=== PATIENT | female | born 2000 | race Two or more races ===

== ENCOUNTER 2025-07-04 13:24 | Emergency (ER) | payer OTHER ==
[~2025-07-04] VITALS: Ht 160 cm; Wt 46.7 kg
[2025-07-04 13:54] VITALS: BP 96/64; O2SAT 97
[2025-07-04] MEDS ORDERED: ADDERALL 10 MG10 MG PO (13:54)
[2025-07-04] MEDS ORDERED: CETIRIZINE HCL 5 MG/5 ML ML PO ONE (15:15)
[2025-07-04] MEDS ORDERED: GUAIFENESIN/DEXTROMETHORPHAN 100MG/10ML BLIST.PACK PO ONE ×2 (15:15→15:30)
[2025-07-04] MEDS ORDERED: ACETAMINOPHEN 500 MG GEL..CAP PO ONE ×2 (15:15→15:29)
[2025-07-04] MEDS ORDERED: CETIRIZINE HCL 10 MG TABLET PO ONE (15:29)
[2025-07-04 15:48] LABS: BASO % 0.2 % (0.1-1.2); EOS # 0.02 (0.04-0.54); EOS % 0.4 % (0.7-7.0); LYMPH # 0.65 (1.18-3.74); LYMPH % 13.2 % (19.3-53.1); MEAN PLATELET VOLUME 9.80 fl (9.4-12.4); MONO # 0.93 (0.24-0.82); NEUT # 3.29 (1.56-6.13); NEUT % 67.1 % (34.0-71.1); RED CELL DISTRIBUTION WIDTH 11.5 % (11.6-14.4)
[2025-07-04 15:55] LABS: MONO % 18.9 % (4.7-12.5)
[2025-07-04 17:20] LABS: COVID-19 AG NEGATIVE (NEGATIVE)
[2025-07-04] MEDS ORDERED: ZYRTEC10 MG PO (17:26)
[2025-07-04] MEDS ORDERED: TUSSIN DM LIQU118 ML PO (17:26)
[2025-07-04] MEDS ORDERED: OSEL75CA PO (17:26)
[2025-07-04] MEDS ORDERED: OSELTAMIVIR PHOSPHATE 75 MG CAPSULE PO ONE ×2 (17:30→17:53)
== END 2025-07-04 18:13 ==
LOC: ER 13:25
PROVIDERS: Student in an Organized Health Care Education/Training Program
DX: J10.1 Influenza due to other identified influenza virus with other respiratory manifestations (principal); J98.8 Other specified respiratory disorders; Z20.822 Contact with and (suspected) exposure to COVID-19; N80.8 Other endometriosis